=== PATIENT | female | born 1940 | race Caucasian/White ===

== ENCOUNTER 2021-10-09 22:36 | Emergency (ER) | payer OTHER, MEDICARE ==
[2021-10-09 22:44] VITALS: BP 169/64; PULSE 64; TEMP 97.5; BMI 24.8
== END 2021-10-09 23:47 | disposition home or self-care (01) ==
LOC: FER 22:36
DX: T46.5X1A Poisoning by other antihypertensive drugs, accidental (unintentional), initial encounter (principal)
CPT/HCPCS: 93005; 99283-25